=== PATIENT | male | born 1965 | race Caucasian/White ===

== ENCOUNTER 2018-07-19 21:52 | Outpatient (REF) | payer MEDICAID, SELFPAY ==
[2018-07-21 11:49] LABS: HSV 1 DNA Result Negative; HSV 2 DNA Result POSITIVE; Specimen Description SUPRAPUBIC
== END 2018-07-19 22:12 ==
LOC: LBN 21:52
PROVIDERS: PCP Emergency Medicine
DX: L98.9 Disorder of the skin and subcutaneous tissue, unspecified (principal); Z11.59 Encounter for screening for other viral diseases
CPT/HCPCS: 87529; 87070; 87205

== ENCOUNTER 2018-07-27 18:59 | Outpatient (REF) | payer MEDICAID, SELFPAY ==
[2018-07-29 22:31] LABS: C.trach, Misc, Amplified RNA Negative (Negative); N.gonorr, Misc, Amplified RNA Negative (Negative); SOURCE: ANAL
[2018-07-31 13:33] LABS: Chlamydia Result Negative; GC Result Negative; Specimen Description URETHRA
== END 2018-07-27 19:19 ==
LOC: NCHCN 18:59
PROVIDERS: PCP Emergency Medicine
DX: Z11.3 Encounter for screening for infections with a predominantly sexual mode of transmission (principal)
CPT/HCPCS: 87491; 87591

== ENCOUNTER 2018-08-08 11:48 | Outpatient (CLI) | payer MEDICAID, SELFPAY ==
[2018-08-08 13:04] LABS: HCT 41.8 % (40.0-50.0); HGB 13.9 g/dL (13.5-17.5); Mean Corp. HGB Concentration 33.3 g/dL (32.0-36.0); Mean Corpuscular Hemoglobin 20.2 pg (27.0-33.0); Mean Corpuscular Volume 60.8 fL (80-95); RBC 6.87 m/cumm (4.50-6.00); RBC Distribution Width 18.7 % (11.8-14.1); White Blood Cell Count 5.47 k/cumm (4.4-10.8)
[2018-08-08 14:00] LABS: Platelet Count 179 x1000/uL (130-400)
[2018-08-08 14:04] LABS: Iron 102 ug/dL (50-175); Total Iron Binding Capacity 261 ug/dL (250-450)
[2018-08-08 14:39] LABS: ALT 28 U/L (12-78); AST 22 U/L (15-37); Albumin 4.1 g/dL (3.4-5.0); Alkaline Phosphatase 36 U/L (46-116); Anion Gap 11.2 mmol/L (3-11); BUN 16 mg/dL (7-18); Bilirubin, Total 0.5 mg/dL (0.2-1.0); CO2 27.8 mmol/L (21.0-32.0); CREATININE 0.89 mg/dL (0.70-1.30); Calcium 9.3 mg/dL (8.5-10.1); Calculated LDL 185; Chloride 102 mmol/L (98-107); Cholesterol 258 mg/dL (50-200); Ferritin 347 ng/mL (8-388); Glucose 78 mg/dL (70-100); HDL Cholesterol 53 mg/dL (40-60); Potassium 3.8 mmol/L (3.5-5.1); Sodium 141 mmol/L (136-145); Total Protein 7.3 g/dL (6.4-8.2); Triglyceride 104 mg/dL (30-150)
[2018-08-09 10:17] LABS: Hepatitis B Surface Ag Negative (NEGAT)
[2018-08-09 11:30] LABS: HIV-1/2 Ag & Ab Screen Negative (NEGAT); Hepatitis C Ab w Rflx HCV PCR Negative (NEGAT)
[2018-08-09 11:33] LABS: Syphilis Serology (RPR) Negative (Negative)
[2018-08-10 21:00] LABS: Source URINE; T.vaginalis, Misc, RNA Negative (Negative)
== END 2018-08-08 12:08 ==
PROVIDERS: PCP Emergency Medicine
DX: D50.9 Iron deficiency anemia, unspecified (principal); Z00.00 Encounter for general adult medical examination without abnormal findings; I10 Essential (primary) hypertension; R21 Rash and other nonspecific skin eruption; Z72.51 High risk heterosexual behavior; E03.9 Hypothyroidism, unspecified; Z11.59 Encounter for screening for other viral diseases; Z11.4 Encounter for screening for human immunodeficiency virus [HIV]
CPT/HCPCS: 36415; 80053; 80061; 83721; 85027; 86803; 87340; 87389; 87661; 82728; 83540; 83550; 86592; 86704

== ENCOUNTER 2018-08-30 09:32 | Outpatient (CLI) | payer MEDICAID, SELFPAY ==
[2018-08-31 09:45] LABS: HIV-1/2 Ag & Ab Screen Negative (NEGAT)
[2018-08-31 12:19] LABS: FSH 5.8 mIU/ml (1.4-18.1); LH 3.2 mIU/ml (2-9)
[2018-09-01 14:38] LABS: Acrosom Defect 14.5 %; Appearance Normal; Container Type 50 mL Conical; Double Forms 0.5 %; Grade 2.5 (>=2.5); Motile/Ejaculate 13.8 x10(6) (>=9.0); Motile/mL 4.6 x10(6) (>=6.0); Motility 40 % (>=40); Sperm/mL 11.5 x10(6) (>=15.0); Study Type Semen
== END 2018-08-30 09:52 ==
DX: N46.9 Male infertility, unspecified (principal); R21 Rash and other nonspecific skin eruption; Z72.51 High risk heterosexual behavior; Z11.4 Encounter for screening for human immunodeficiency virus [HIV]
CPT/HCPCS: 87389; 83001; 83002; 89240; 89310

== ENCOUNTER 2018-09-01 16:20 | Outpatient (REF) | payer MEDICAID, SELFPAY ==
[2018-09-04 11:28] LABS: Campylobacter PCR SEE COMMENTS; Salmonella PCR SEE COMMENTS; Shiga Toxin PCR SEE COMMENTS; Shigella/Enteroinvasive Ecoli SEE COMMENTS
== END 2018-09-01 16:40 ==
LOC: LBN 16:20
PROVIDERS: Visit Provider Family Medicine
DX: R19.7 Diarrhea, unspecified (principal)
CPT/HCPCS: 87329; 87505; 87324

== ENCOUNTER 2018-09-14 01:39 | Outpatient (CLI) | payer MEDICAID, SELFPAY ==
[2018-09-14 10:00] LABS: Abs Immature Grans 0.01 k/cumm (0.0-0.09); Absolute Basophil Count 0.02 k/cumm (0.0-0.2); Absolute Eosinophil Count 0.07 k/cumm (0.0-0.7); Absolute Neutrophil Count 2.68 k/cumm (1.2-6.7); Basophils % 0.4; Eosinophils % 1.4; HGB 13.1 g/dL (13.5-17.5); Immature Grans % 0.2; Lymphocytes % 34.1; Mean Corp. HGB Concentration 33.6 g/dL (32.0-36.0); Mean Corpuscular Hemoglobin 20.4 pg (27.0-33.0); Mean Corpuscular Volume 60.7 fL (80-95); Neutrophils % 53.9; Platelet Count 187 x1000/uL (130-400); RBC 6.42 m/cumm (4.50-6.00); RBC Distribution Width 18.6 % (11.8-14.1); White Blood Cell Count 4.98 k/cumm (4.4-10.8)
[2018-09-14 10:34] LABS: Diff Comment RBC Morph Reviewed
[2018-09-14 10:35] LABS: Hypochromasia 2+; Microcytosis 3+
[2018-09-14 10:36] LABS: Poikilocytes 2+
== END 2018-09-14 01:59 ==
PROVIDERS: Visit Provider Family Medicine
DX: R19.7 Diarrhea, unspecified (principal); R53.83 Other fatigue
CPT/HCPCS: 36415; 85025

== ENCOUNTER 2018-10-03 07:01 | Day surgery (SDC) | payer MEDICAID, SELFPAY ==
[2018-10-03 07:19] VITALS: BP 128/84; PULSE 68; RESP 16; TEMP 36; O2SAT 100
[2018-10-03] MEDS: Lactated Ringers 1,000 ML 80 ML IV (07:37)
--- NOTE | 2018-10-03 08:25 | BOWEL_PTH ---
PATIENT: Johnny Lee LOC: [facility] U#:[id number] AGE/SX: 53/M ROOM: RE10/03/[address]: Renate Hamlin MD : 1965 BED: DIS: 10/03/2018 SPEC #: [id number] RECD: 10/03/18 13:00 STATUS: TAPAN REOmid #: [id number] NEGRO: 10/03/18 08:[address]: Renate Hamlin DEPT: Surgical Specimen RECD BY: Paty Barraza ENTERED: 10/03/18 13:03 SP TYPE: Bowel OTHR DR: Les Ghosh MD Tissues: 1 - BIOPSY BOWEL 2 - STOMACH BIOPSY 3 - BIOPSY BOWEL Procedures: GROSS AND MICRO LEVEL 4 Comments: [id number]
--- NOTE | 2018-10-03 08:56 | W.PM.DSUDISC ---
Discharge Plan Disposition Patient Disposition: HOME Condition: Good Discharge Details Attending Provider: Renate Hamlin Primary Care Provider: Les Ghosh Home Meds and New Rx's Prescriptions: Continued triamcinolone acetonide 0.1 % ointment 1 applic TP BID PRN (Reason: anal/buttocks dermatitis) RF: 0 indomethacin 50 mg capsule 50 mg PO TID PRN (Reason: gout) Qty: 30 RF: 0 Discharge Instructions Additional Instructions: Your EGD and colonoscopy looked normal. Routine biopsies were taken in the stomach and colon. My office will send a letter with results. You will need a screening colonoscopy in 10 years Activity:: Activity as Tolerated Diet:: As Tolerated Discharge Orders Discharge Orders: Discharge Order (Routine); Ordered 10/03/18 Ordered By: Renate Hamlin DS: Diagnosis Discharge Diagnosis (1) Change in bowel habits: Start date: 10/03/18 Start time: 08:56 Status: Acute (2) Nausea: Status: Acute
[2018-10-03 09:35] VITALS: BP 122/78; PULSE 57; RESP 16; TEMP 36; O2SAT 99
--- NOTE | 2018-10-04 09:29 | ENDO_ITS ---
REPORT OF OPERATIVE PROCEDURE DATE OF PROCEDURE October 03, 2018 PREOPERATIVE DIAGNOSES 1. Nausea. 2. Change in bowel habits. POSTOPERATIVE DIAGNOSES 1. Normal EGD. 2. Normal colon. PROCEDURES 1. EGD with duodenal biopsies and antral biopsies. 2. Colonoscopy with random biopsies. SURGEON Renate Hamlin M.D. ANESTHESIA Monitored Anesthesia Care. INDICATION This is a 53-year-old man who complains of nausea and vomiting. He also has several loose stools a da y, which is new over the past month or so. He will often have to hurry to the bathroom. Stool culture s have been normal. He has not had a previous colonoscopy. PROCEDURE DESCRIPTION He was placed in the left lateral decubitus position. Propofol was titrated to sedation. The scope wa s advanced into the esophagus under direct visualization and down into the stomach and the duodenum. Biopsies were taken from the second portion of the duodenum to evaluate for celiac disease. The stoma ch itself appeared normal, including a retroflexed view of the fundus and the lesser curvature. Biops ies were taken from the gastric antrum to evaluate for H. pylori. The GE junction exhibited no eviden ce of masses, inflammation, Samano's or strictures. The air was suctioned from the stomach and the s cope withdrawn with no other esophageal lesions found. Digital rectal examination revealed no abnormalities. The scope was advanced to the cecum without dif ficulty. His prep was excellent. I took random biopsies throughout the colon to evaluate for microsco pic colitis. There were no visible abnormalities within the ascending, transverse, descending sigmoid colon or rectum, including on retroflexed view. He tolerated the procedure well and was stable to Re covery. I will contact him with biopsy results and proceed with further testing if indicated. This could incl ude a CT scan of the abdomen and pelvis. He will need a followup screening coloscopy in 10 years or s ooner if symptoms indicate. CC: Les Ghosh M.D.
== END 2018-10-03 10:10 | disposition home or self-care (01) ==
PROVIDERS: PCP Family Medicine; Visit Provider Surgery
PROC: (CPT 45380; principal; 2018-10-03 08:30)
DX: R19.4 Change in bowel habit (principal); R11.0 Nausea; F10.11 Alcohol abuse, in remission; D64.9 Anemia, unspecified
CPT/HCPCS: 45380; 43239; 88305

== ENCOUNTER 2018-10-16 00:37 | Outpatient (CLI) | payer MEDICAID, SELFPAY ==
[2018-10-16] MEDS: Omnipaque 350 MG/ML 50 ML BTL PO (09:48)
[2018-10-16] MEDS: Breeza Beverage 473 ML BTL PO ×2 (09:48→09:49)
[2018-10-16 09:50] LABS: CREATININE 0.85 mg/dL (0.70-1.30)
--- NOTE | 2018-10-16 11:09 | DI.CT_ITS ---
SYMPTOM/DIAGNOSIS: NAUSEA, CHANGE IN BOWEL HABITS, ABDOMINAL PAIN R10.[address]: 10/16 CT examination of the abdomen and pelvis was performed with a bolus infusion of 100 cc Omnipaque 350 and ingestion of dilute barium. Images obtained through the lung bases are unremarkable. Cardiac size is within normal limits. Liver, spleen and pancreas appear normal. Gallbladder and bile ducts are CT normal. Adrenals and kidneys appear normal. No evidence of urinary tract calcification or obstruction. Abdominal aorta is of normal diameter and no major vascular abnormality is seen. No abdominal or pelvic adenopathy. No significant abdominal wall hernia seen. Appendix is normal. No evidence of diverticulitis or bowel obstruction. Note is made of apparent wall thickening of the urinary bladder which is a nonspecific finding but which could represent acute or chronic cystitis. Chronic bladder outlet obstruction not excluded. CONCLUSION: Wall thickening of the urinary bladder which is a nonspecific finding. Correlation requested regarding the possibility of cystitis or chronic bladder outlet obstruction.
[2018-10-16] MEDS: Omnipaque 350 MG/ML 100 ML BTL IJ (11:14)
[2018-10-16] MEDS: Normal Saline Flush 10 ML SYR IVP (11:15)
== END 2018-10-16 00:57 ==
PROVIDERS: PCP Family Medicine; Visit Provider Surgery
DX: R19.4 Change in bowel habit (principal); R10.9 Unspecified abdominal pain
CPT/HCPCS: 74177; 82565; J3490; Q9967

== ENCOUNTER 2018-10-20 11:24 | Outpatient (CLI) | payer MEDICAID, SELFPAY ==
[2018-10-20 12:02] LABS: Bilirubin Negative (Negative); Blood Negative (Negative); Clarity Clear (Clear); Glucose Negative (Negative); Ketones Negative (Negative); Leukocyte Esterase Negative (Negative); Nitrite Negative (Negative); Specific Gravity <= 1.005 (1.005-1.025); Urobilinogen 0.2 EU/dL (Up TO 0.2)
== END 2018-10-20 11:44 ==
PROVIDERS: PCP Family Medicine; Visit Provider Surgery
DX: R30.0 Dysuria (principal)
CPT/HCPCS: 81003

== ENCOUNTER 2020-06-09 08:16 | Day surgery (SDC) | payer MEDICAID, SELFPAY ==
[2020-06-09 08:20] VITALS: BP 115/73; PULSE 80; RESP 18; TEMP 36.7; O2SAT 97
[2020-06-09] MEDS: Tropicam./Phenyleph. (1/2.5%) 5 ML BTL OS ×3 (08:46→08:56)
[2020-06-09] MEDS: Povidone-Iodine Ophth 30 ML BTL (09:32)
[2020-06-09] MEDS: Tetracaine 0.5% 4 ML BTL OS (09:32)
[2020-06-09] MEDS: Lidocaine 1% Pres-Free 5 ML VIAL (09:39)
[2020-06-09] MEDS: Trypan Blue 0.06% 0.5 ML SYR (09:39)
[2020-06-09] MEDS: Balanced Salt Soln.-PLUS 500 ML BAG (09:40)
[2020-06-09] MEDS: Duovisc Viscoelastic System EACH 1 EACH (09:41)
[2020-06-09] MEDS: Lidocaine 2% Jelly 6 ML SYR (09:42)
--- NOTE | 2020-06-09 10:03 | W.PM.DSUDISC ---
Discharge Plan Disposition Patient Disposition: HOME Condition: Good Discharge Details Attending Provider: Fabio Laird Primary Care Provider: Kristina Pierre Home Meds and New Rx's Prescriptions: No Action triamcinolone acetonide 0.1 % ointment 1 applic TP BID PRN (Reason: anal/buttocks dermatitis) RF: 0 indomethacin 50 mg capsule 50 mg PO TID PRN (Reason: gout) Qty: 60 RF: 3 Discharge Instructions Stand Alone Forms: Post-op Topical Cataract, Camron Ganey (DSU) Discharge Orders Discharge Orders: Discharge Order (Routine); Ordered 06/09/20 Ordered By: Fabio Laird DS: Diagnosis Discharge Diagnosis (1) Posterior subcapsular age-related cataract of left eye: Status: Resolved (2) Nuclear age-related cataract, left eye: Status: Resolved (3) Cortical cataract of left eye: Status: Resolved
--- NOTE | 2020-06-09 10:04 | ROE_ITS ---
Date of service: 06/09/20 Time of Service: 10:04 Operative Note Operative Note DATE OF PROCEDURE: 06/09/20 PRE-OP DIAGNOSIS: Nuclear/cortical/posterior subcapsular cataract, left eye Poor red reflex, left eye secondary to cataract POST-OP DIAGNOSIS: same PROCEDURE: Cataract extraction using phacoemulsification with intraocular lens implant, left eye, using capsular staining with Vision Blue SURGEON: Fabio Laird ANESTHESIA TYPE: Local By Surgeon and MAC Refer to Anesthesia Record COMPLICATIONS: None Patient was transported to: same day Patient's condition: stable Implants: Candido and Candido / [employer] Tecnis [id number] Indications: Progressive decreased vision due to cataract, left eye, with poor red reflex Procedure Description: CATARACT SURGERY OPERATIVE REPORT PREOPERATIVE DIAGNOSIS: 1. Nuclear/cortical/posterior subcapsular cataract, left eye 2. Poor red reflex secondary to #1 POSTOPERATIVE DIAGNOSIS: Same OPERATION: 1. Cataract extraction using phacoemulsification with posterior chamber intraocular lens implant, left eye. 2. Capsular staining with Vision Blue IOL: IOL Physician Relations Specialist/Model: Candido & Candido / JENNIFER Tecnis [id number] IOL Power: + 19.5 diopters IOL Serial Number: [id number] Optic Diameter: 6.0 mm Haptic/Overall Diameter: 13.0 mm PHACO INFO: Georgi Centurion Vision System with OZil and Active [employer]uidics Cumulative Dispersed Energy (CDE): 4.09 seconds SURGEON: Fabio Laird MD, EARLENE ANESTHESIA: Monitored A [facility] (MAC), with local sub-tenon's anesthetic infiltration COMPLICATIONS: None SPECIMENS: None INDICATIONS FOR PROCEDURE: The patient is a 54-year-old gentleman with history of nuclear/cortical/posterior subcapsular cataract of the left eye. He is significantly symptomatic that he desires cataract surgery and attempt to improve and maximize his vision. He has previously undergone cataract surgery in his right eye in 2015. He now presents for cataract surgery of the left eye. PROCEDURE: The correct surgical eye was identified and marked as the left eye and the pupil was dilated in the preoperative area using mydriatics and cycloplegics. The dilated pupil size was 7.5 mm. He elected to proceed without sedation. The patient was brought to the operating room where cardiopulmonary monitoring was instituted and surgical time-out was performed, confirming the correct operative eye and IOL power. Topical anesthesia was administered and ophthalmic povidone-iodine 5% was instilled into the conjunctival fornices. Lidocaine gel was applied to the cornea and the dayron-ocular area was prepped with Betadine 10% solution and draped in the usual sterile fashion for intraocular surgery, including an aperture drape. A Tegaderm transparent film dressing was cut in half and used to cover the lashes and lid margins. Care was taken to sequester the lashes and lid margins under the Tegaderm dressing. A lid speculum was placed between the lids of the operative eye and the Bo-Geneva operating microscope was maneuvered into position. Tracy scissors were then used to make a conjunctival buttonhole approximately 6mm posterior to the limbus in the inferonasal quadrant. Blunt dissection was carried out to expose bare sclera, and a blunt-tipped sub-tenon?s anesthesia cannula was introduced and passed posteriorly along the globe where non- preserved plain lidocaine was injected into posterior sub-Tenon?s space. A sideport knife was used to make a paracentesis port superiorly/superiortemporally. Intraocular phenylephrine/lidocaine was injected int the anterior chamber.. Air was then injected into the anterior chamber, followed by Vision Blue, which was painted over the anterior capsule and then irrigated out using BSS. The anterior chamber was filled with viscoelastic. A 2.4mm keratome knife was used to create a half-thickness groove at the limbus and then to construct a three-plane near-clear corneal tunnel extending 2.0mm into clear cornea at the 3:00 position. A flap was raised on the anterior capsule and capsulorhexis forceps were used to complete a continuous curvilinear capsulorhexis of 5.5 mm. Balanced salt solution was then used to perform cortical cleaving hydrodissection and nuclear hydrodelineation until the lens could be freely rotated within the capsular bag. The lens nucleus was then disassembled and removed within the capsular bag and iris plane using phacoemulsification. Residual cortical material was removed using the 45-degree angled silicone I/A tip with 0.3mm port. The posterior capsule was carefully polished to remove as much residual lens epithelial cells as safely possible. The capsular bag was then inflated and the anterior chamber deepened with viscoelastic. The lens implant described above was inserted into the capsular bag using the JENNIFER [place] Injector. A Kuglen hook was used to dial the IOL into position. Residual viscoelastic was then removed first from posterior to the IOL, then from the anterior chamber using the I/A handpiece. The lens implant was noted to center nicely within the capsular bag. The incisions were stromally hydrated, and the anterior chamber was reformed using BSS. Then 0.5cc of moxifloxacin 1.0mg/ml were injected into the capsular bag and anterior chamber. The incisions were checked with a Weck spear and found to be secure. Several drops of ophthalmic povidone-iodine 5% were then applied to the eye followed by two drops of Imprimis combination prednisolone/moxifloxacin/nepafenac solution. The drapes were removed and a clear plastic protective eye shield was placed over the eye. The patient was then returned to [facility] in stable condition.
== END 2020-06-09 10:22 | disposition home or self-care (01) ==
PROVIDERS: Visit Provider Ophthalmology
PROC: (CPT 66982; principal; 2020-06-09 10:30)
DX: H25.12 Age-related nuclear cataract, left eye (principal); H25.042 Posterior subcapsular polar age-related cataract, left eye; H25.012 Cortical age-related cataract, left eye; H57.09 Other anomalies of pupillary function; Z96.1 Presence of intraocular lens; Z98.41 Cataract extraction status, right eye
CPT/HCPCS: 66982; V2632

== ENCOUNTER 2021-11-04 02:49 | Outpatient (CLI) | payer MEDICAID, SELFPAY ==
[2021-11-04 12:58] LABS: ALT 25 U/L (16-63); AST 22 U/L (15-37); Albumin 3.8 g/dL (3.4-5.0); Alkaline Phosphatase 26 U/L (46-116); Anion Gap 10.6 mmol/L (3-11); BUN 16 mg/dL (7-18); Bilirubin, Total 0.7 mg/dL (0.2-1.0); CO2 26.4 mmol/L (21.0-32.0); Calculated LDL 156 mg/dL (<100); Chloride 106 mmol/L (98-107); Cholesterol 223 mg/dL (<200); Estimated GFR 87.78 (mL/min/1.73m2); Glucose 94 mg/dL (74-106); HDL Cholesterol 56 mg/dL (40-60); Potassium 4.3 mmol/L (3.5-5.1); Sodium 143 mmol/L (136-145); Total Protein 7.2 g/dL (6.4-8.2); Triglyceride 59 mg/dL (<150)
[2021-11-04 13:16] LABS: Calcium 8.8 mg/dL (8.5-10.1)
== END 2021-11-04 02:50 | disposition home or self-care (01) ==
LOC: LOS 02:49
DX: Z00.00 Encounter for general adult medical examination without abnormal findings (principal); Z13.220 Encounter for screening for lipoid disorders
CPT/HCPCS: 36415; 80053; 80061

== ENCOUNTER 2022-05-14 01:37 | Outpatient (CLI) | payer MEDICAID, SELFPAY ==
[2022-05-14 12:39] LABS: Calculated LDL 118 mg/dL (<100); Cholesterol 193 mg/dL (<200); HDL Cholesterol 59 mg/dL (40-60); Triglyceride 82 mg/dL (<150)
== END 2022-05-14 01:38 | disposition home or self-care (01) ==
LOC: LOS 01:38
PROVIDERS: PCP Nurse Practitioner Family; Visit Provider Nurse Practitioner Family
DX: E78.00 Pure hypercholesterolemia, unspecified (principal)
CPT/HCPCS: 36415; 80061

== ENCOUNTER 2023-07-23 18:42 | Inpatient (IN) | payer MEDICAID, SELFPAY ==
--- NOTE | 2023-07-23 18:45 | DI.RAD_ITS ---
Exam(s) XR HIP LT COMPLETE AP PELVIS EXAM: XR HIP LT COMPLETE AP PELVIS CLINICAL HISTORY: hip pain. TECHNIQUE: 2D digital imaging was performed. COMPARISON: No exams were available for comparison FINDINGS: 3 views There is nondisplaced fracture of the mid level of the left femoral neck. No other fractures identif ied. Left hip joint space appears unremarkable. No other pelvic fractures identified. No osseous l esions. IMPRESSION: Nondisplaced left femoral neck fracture. No dislocation of the hip joint. DATA REPOSITORY: RADIATION DOSE DELIVERED:
[2023-07-23 18:48] VITALS: BP 132/87; PULSE 77; RESP 15; TEMP 37.1; O2SAT 99
[2023-07-23] MEDS: oxyCODONE 5 MG TAB PO (19:15)
--- NOTE | 2023-07-23 20:31 | DI.VRAD_ITS ---
PROCEDURE INFORMATION: Exam: XR Left Hip Exam date and time: 07/23/2023 7:25 PM Age: 57 years old Clinical indication: Injury or trauma; Fall; Blunt trauma (contusions or hematomas); Left; Injury date: 07/23/23; Patient HX: Hip pain TECHNIQUE: Imaging protocol: Radiologic exam of the left hip. Views: 2 or 3 views hip with pelvis when performed. COMPARISON: CT ABDOMEN PELVIS W 10/16/2018 11:05 AM FINDINGS: Bones/joints: Left femoral neck fracture. No significant displacement. No dislocation of femoral head. No pelvic fracture is evident. Sacrum, sacroiliac joints, pubic symphysis are unremarkable. Right hip is unremarkable. Lower lumbar spine is unremarkable as visualized. Soft tissues: Unremarkable. IMPRESSION: Left femoral neck fracture. No significant displacement. No dislocation of hip joint. Dictated and Authenticated by: Quincy Allen MD. Ordering:AIDEN Crespo MD
[2023-07-23] MEDS: Ondansetron 4 MG/2 ML VIAL IVP (20:45)
--- NOTE | 2023-07-23 20:45 | RT.EKG_ITS ---
APPROVED REPORT Exam: Resting ECG Reason for Exam: preop Patient Location: E HR:81 bpm ECG Measurements Heart Rate 81 AXIS RI 153 P 3 QRSd 111 QRS 86 QT 396 T 37 QTc 460 Conclusion Sinus rhythm 81 normal axis
--- NOTE | 2023-07-23 20:45 | DI.RAD_ITS ---
Exam(s) XR PORTABLE CHEST AP EXAM: XR PORTABLE CHEST AP CLINICAL HISTORY: pre op. TECHNIQUE: 2D digital imaging was performed. COMPARISON: No exams were available for comparison FINDINGS: Single AP portable view. Heart size is upper normal. The mediastinum is not widened. Multiple healed rib fractures noted bilaterally as well as a healed midshaft fracture of the left cla vicle. No infiltrates nor pleural effusions. No pneumothorax. No pulmonary edema. IMPRESSION: No acute pulmonary findings on this single AP portable view of the chest. Multiple bilateral healed rib fractures and healed left clavicle fracture. DATA REPOSITORY: RADIATION DOSE DELIVERED:
[2023-07-23 20:48] LABS: Abs Immature Grans 0.05 10^3/uL (0.0-0.06); Absolute Eosinophil Count 0.02 10^3/uL (0.0-0.7); Absolute Lymphocyte Count 0.76 10^3/uL (1.2-3.4); Absolute Neutrophil Count 10.43 10^3/uL (1.2-6.7); Basophils % 0.3 %; Eosinophils % 0.2 %; HGB 12.9 g/dL (13.5-17.5); Immature Grans % 0.4 %; Lymphocytes % 6.3 %; MCH 20.8 pg (27.0-33.0); MCHC 32.3 % (32.0-36.0); MCV 64 fL (80-95); Monocytes % 5.8 %; RBC 6.21 10^6/uL (4.36-5.78); RDW 17.1 % (11.8-14.1); RDW-SD 35.2 fL; WBC 11.99 10^3/uL (4.4-10.8)
--- NOTE | 2023-07-23 20:52 | W.ORTHOCONSU ---
Date of service: 07/24/23 Time of Service: 07:30 Assessment and Plan Assessment and plan (1) Left displaced femoral neck fracture: Assessment and plan: 57 year old male with mildly displaced Left femoral neck fracture Medical admission & optimization for surgery tomorrow morning: Left hip closed reduction internal fixation NPO post midnight, hold chemical dvt ppx, B/L SCDs, pain control D/W hospitalist & ER doctors AM update? Mechanical fall, isolated injury left hip. No other complaints or concerns. Stable medical problems. Healthy and active enjoys biking and skiing. No pre-existing hip problems, arthritis, pain, or injuries. Review of systems negative. General exam shows no injuries and painless range of motion about neck bilateral shoulders right lower extremity. Left lower extremity only gently tested without any notable edema, ecchymosis, and neurovascular intact throughout with readily palpable dorsalis pedis pulse. Labs and imaging reviewed. Discussed thoroughly, mildly displaced, valgus impacted left femoral neck fracture. Overall, physiologically young active patient without any pre-existing hip dysfunction. Recommend internal fixation over LORELEI at this time. Reviewed risks and benefits unique to this surgery including potential failure requiring additional hip surgery like LORELEI. Decision to proceed with surgery today: Left hip closed reduction internal fixation The risks, benefits, and alternatives were thoroughly discussed. Patient was counseled regarding pain management, expected postoperative course, and recovery timeline. All questions were answered. Informed consent was obtained. Agree and understand treatment plan. Breathing comfortably on room air. No coughs or wheezes. 2+ left dorsalis pedis pulse regular rate and rhythm. 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 Gout Surgical History Extraction of cataract 01/2015; [facility]; RIGHT EYE Family History Mother , 87 Cancer Social History Smoking/Tobacco Use Status: Former Tobacco Use tobacco type: cigarettes Quit Date: 03/07/12 Tobacco: How many years used: 20 Second Hand Exposure: Yes Smoking risk assessment performed?: Yes Alcohol Intake: former Drug use: Never Substance use type: does not use Housing: house Do you need help understanding health information?: Never 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 Pets and animals: Yes Pets and animals: dog(s) Sexually active: No Do you think of yourself as: straight/heterosexual Current gender identity: male What is your relationship status?: How often do you talk on the phone with friends or family?: once per week How often do you get together with friends or relatives?: once per week How often do you attend samaritan or yazidi services?: decline to answer Do you belong to any clubs or organized social groups?: no Panel score (0-1 are the most socially isolated patients): 0 What type of physical activity do you participate in: walking Frequency: daily Nikki/Shinto: No preference Special nikki needs: No Seatbelt use: always Helmet use: Yes Helmet use: always Drive intox 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
[2023-07-23 21:03] LABS: PTT Activated 21.8 sec (23.6-32.8); Prothrombin Time 10.5 sec (9.1-11.1)
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
[2023-07-23 21:04] LABS: ALT 22 U/L (16-63); AST 17 U/L (15-37); Albumin 4.2 g/dL (3.4-5.0); Alkaline Phosphatase 35 U/L (46-116); Anion Gap 10.4 mmol/L (3-11); BUN 17 mg/dL (7-18); Bilirubin, Total 0.8 mg/dL (0.2-1.0); CO2 26.6 mmol/L (21.0-32.0); CREATININE 0.8 mg/dL (0.70-1.30); Calcium 8.8 mg/dL (8.5-10.1); Chloride 103 mmol/L (98-107); Estimated GFR 102.58 (mL/min/1.73m2); Glucose 97 mg/dL (74-106); Potassium 3.7 mmol/L (3.5-5.1); Sodium 140 mmol/L (136-145); Total Protein 7.5 g/dL (6.4-8.2)
[2023-07-23 21:12] LABS: Absolute Basophil Count 0.04 10^3/uL (0.0-0.2); Platelet Count 159 10^3/uL (130-400)
[2023-07-23 21:13] LABS: Diff Comment RBC Morph Reviewed; Microcytosis 1+
--- NOTE | 2023-07-23 21:18 | DI.VRAD_ITS ---
PROCEDURE INFORMATION: Exam: XR Chest Exam date and time: 07/23/2023 9:03 PM Age: 57 years old Clinical indication: Other: Pre op TECHNIQUE: Imaging protocol: Radiologic exam of the chest. Views: 1 view. COMPARISON: CT ABDOMEN PELVIS W 10/16/2018 11:05 AM FINDINGS: Lungs: Clear lungs bilaterally. No consolidation. No features of edema. Suggestion of a right mid to lower lung field 7 x 6 mm nodule. This overlies the posterior aspect of the 7th rib. This might represent a nipple shadow. Pleural spaces: No pleural effusion. Heart/Mediastinum: Normal heart size. Bones/joints: Multiple bilateral rib fractures which are old and healed. IMPRESSION: 1. No acute lung infiltrates or edema. 2. No acute pleural change per 3. Normal heart size. 4. Multiple old bilateral rib fractures. 5. Degenerative thoracic spine. 6. Possible left mid to lower lung field 7 mm nodule versus nipple shadow. Dictated and Authenticated by: Quincy Allen MD. Ordering:JoaquinCOLT Crsepo MD
[2023-07-23 21:59] LABS: Bilirubin Negative (Negative); Blood Negative (Negative); Clarity Clear (Clear); Glucose Negative (Negative); Ketones 40 mg/dL (Negative); Leukocyte Esterase Negative (Negative); Nitrite Negative (Negative); Specific Gravity >= 1.030 (1.005-1.025); Urobilinogen 0.2 mg/dL (Up to 0.2); pH 5.5 (5-8)
[2023-07-23] MEDS: Normal Saline 1,000 ML 125 ML IV (22:41)
[2023-07-23 22:43] VITALS: BP 137/83; PULSE 94; RESP 16; TEMP 36.5; O2SAT 98
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
[2023-07-23] MEDS: MORPHine 4 MG/ML SYR IVP (23:37)
[2023-07-23 23:38] LABS: Iron 63 ug/dL (65-175)
[2023-07-23] MEDS: Normal Saline Flush 10 ML SYR IVP (23:38)
[2023-07-23 23:52] LABS: Ferritin 321 ng/mL (26-388)
[2023-07-24] VITALS (10 sets, daily range): BP systolic 105–123; BP diastolic 67–81; PULSE 73–88; RESP 14–16; TEMP 36.1–36.7; O2SAT 92–98; BMI 25.8
[2023-07-24 00:05] LABS: Folate 14.4 ng/mL (8.6-20.0); Vitamin B12 406 pg/mL (193-986)
[2023-07-24] MEDS: MORPHine 4 MG/ML SYR IVP (03:30)
--- NOTE | 2023-07-24 06:45 | DI.RAD_ITS ---
Exam(s) XR HIP LT IN OR EXAM: XR HIP LT IN OR CLINICAL HISTORY: Left displaced femoral neck fracture. TECHNIQUE: 2D digital imaging was performed. COMPARISON: No exams were available for comparison FINDINGS: Fluoroscopy provided during orthopedic procedure left hip. See procedure report for details. Total fluoroscopy time 55 seconds IMPRESSION: Radiation exposure index/cumulative dose: elliot Donnelly=9.5141 mGy DATA REPOSITORY: RADIATION DOSE DELIVERED:
[2023-07-24] MEDS: Normal Saline 1,000 ML 125 ML IV (06:49)
[2023-07-24 07:10] LABS: HCT 35.8 % (40.0-50.0); HGB 11.3 g/dL (13.5-17.5); MCH 20.3 pg (27.0-33.0); MCHC 31.6 % (32.0-36.0); MCV 64 fL (80-95); Platelet Count 180 10^3/uL (130-400); RBC 5.58 10^6/uL (4.36-5.78); RDW 16.3 % (11.8-14.1); RDW-SD 35.6 fL; WBC 6.99 10^3/uL (4.4-10.8)
--- NOTE | 2023-07-24 07:21 | W.PM.OP ---
Date of service: 07/24/23 Time of Service: 08:00 Operative Note Operative Note DATE OF PROCEDURE: 07/24/23 PRE-OP DIAGNOSIS: Left mildly displaced femoral neck fracture POST-OP DIAGNOSIS: same PROCEDURE: Left hip internal fixation, CPT #90156 SURGEON: Tai Piedra BUILDING SERVICE WORKER: None None ANESTHESIA TYPE: Local By Surgeon and General LMA/ETT Refer to Anesthesia Record ESTIMATED BLOOD LOSS: 5 COMPLICATIONS: None Patient was transported to: PACU Patient's condition: stable Indications: Please see complete medical record for details. Findings: Synthes 7.3 mm cannulated screws x3 with 32 mm threads Procedure Description: In the operating room, general anesthesia was induced. The patient was positioned gently supine on the operating room [place] table. All bony prominences were well-padded. Preoperative antibiotics and TXA were administered. The left hip was prepped and draped in the usual sterile fashion. The correct patient, procedure, and side of the procedure were all verified prior to incision. Gentle hip flexion followed by extension internal rotation was used to reduce the fracture with x-ray assistance. A small lateral surgical area was preinjected with 0.25% bupivacaine containing epinephrine 30 cc. A small longitudinal incision was made, iliotibial band split, and lateral proximal femoral cortex palpated with the tip of the first 2.8 mm threaded guidewire. It was positioned centrally in the anterior to posterior plane and directed low inferior along the femoral neck into the femoral head. Appropriate angle was confirmed on lateral imaging in the other plane. An additional 2 superior anterior and posterior guidewires were placed similarly taking care to maintain good spread and positioning in the femoral head neck. Guidewires were adjusted into subchondral bone, measurements taken, and 5 mm subtracted for screw lengths. The 5.0 mm cannulated drill was used over the wires up to the level of the fracture. There was good bone quality. 32 mm threaded lengths were chosen given the level of the fracture and to engage more bone proximately to prevent displacement or subsidence of this now minimally displaced fracture. The screws were provisionally sent down majority of the way under power starting sequentially inferiorly, then posterior, and lastly anterior. The anterior screw was going to be long so it was removed, guidewire replaced, and shorter screw length chosen with the screw then placed the majority the way under power as well. Hand screwdriver was then used to provisionally tightened each screw bringing the heads down to bone, each guidewire was backed up so the screw tips were most visible, and multiple AP and lateral x-rays under various hip rotation images were taken to confirm no prominence at all in the joint and appropriate hardware placement. Each screw was final tightened taking care not to over-compress and shorten this fracture given the good proximal bone quality and again relatively nondisplaced alignment achieved with the goal to heal in this anatomic position. The small lateral wound was copiously irrigated normal saline. Subcutaneous tissue closed with 2-0 Monocryl buried erupted. Skin glue applied over the incision followed by Mepilex Band-Aid. The patient awoke from anesthesia without complication and was transferred to the recovery room in a stable condition.
--- NOTE | 2023-07-24 07:27 | ANES.PREOP_ITS ---
General Info Date of Service Date Performed: 07/24/23 Height: 5 ft 9 in Weight: 79.379 kg Body Mass Index (BMI): 25.8 Surgical Procedure: Operation Date: 07/24/23 08:00 Proposed Procedure Side Surgeon p Hip Cannulated Fx Tai Piedra MD Meds Allergies and Home Medications Allergies Allergy/AdvReac Type Severity Reaction Status Date / Time No Known Drug Allergies Allergy Verified 05/17/22 11:03 Home Medication Medication Instructions Recorded indomethacin 50 mg capsule 50 mg PO TID PRN gout #60 tab-caps 05/22/20 atorvastatin 10 mg tablet See Rx Instructions .Route 03/19/22 .COMPLEX #90 tabs Current Visit Medications: Current Medications Generic Name Dose Route Start Last Admin Trade Name Freq PRN Reason Stop Dose Admin Acetaminophen 0 mg 07/23/23 21:11 Acetaminophen 325 Mg Tab PO Q4H PRN PRN Al Hydrox/Mg Hydrox/Simethicone 15 ml 07/23/23 21:11 Mylanta Double Strength Suspension 30 Ml Cup PO Q2H PRN PRN Atorvastatin Calcium 10 mg 07/23/23 22:00 07/23/23 22:40 Atorvastatin 10 Mg Tab PO Not Given HS NICOLLE Docusate Sodium 100 mg 07/23/23 21:11 Docusate Sodium 100 Mg Cap PO TID PRN PRN Sodium Chloride 1,000 mls @ 125 mls/hr 07/23/23 21:15 07/24/23 06:49 Saline 1000ml Bag IV 125 mls/hr INFUSION NICOLLE Administration IV Miscellaneous Supplies 1 each 07/23/23 21:15 Iv Access IV DIRECTED NICOLLE Magnesium Hydroxide 30 ml 07/23/23 21:11 Milk Of Magnesia 30 Ml Cup PO DAILY PRN PRN Morphine Sulfate 4 mg 07/23/23 21:19 07/24/23 03:30 Morphine 4 Mg/Ml Syr IVP 4 mg Q2H PRN PRN Administration Polyethylene Glycol 17 gm 07/23/23 21:11 Polyethylene Glycol 3350 17 Gm Packet PO DAILY PRN PRN Constipation Sodium Chloride 0 ml 07/23/23 21:11 07/23/23 23:38 Normal Saline Flush 10 Ml Syr IVP 20 ml PRN PRN Administration Sodium Chloride 0 ml 07/24/23 08:30 Normal Saline Flush 10 Ml Syr IVP BID NICOLLE Sodium Chloride 0 ml 07/23/23 21:11 Normal Saline 10 Ml Vial IJ DIRECTED PRN PFSH Active Problems Active Problems: Problem Status Onset Code Fracture of femoral neck, left, closed S72.002A Situational stress F43.9 High cholesterol E78.00 Encounter for annual physical exam Z00.00 Posterior subcapsular age-related cataract of left eye H25.042 Nuclear age-related cataract, left eye H25.12 Cortical cataract of left eye H26.9 Epididymal cyst N50.3 Change in bowel habits R19.4 Lesion of nose J34.89 Skin rash R21 Alcohol abuse F10.10 History of left cataract extraction Z98.42 Anemia 05/02/13 D64.9 Gout 10/16/09 M10.9 History of tobacco use Z87.891 Medical History Medical History Screening cholesterol level Testicular pain Nausea Routine screening for STI (sexually transmitted infection) 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 Gout Surgical History Surgical History Extraction of cataract 01/2015; [facility]; [facility] Tobacco Smoking/Tobacco Use Status: Former Tobacco Use Passive smoking exposure: Yes Second hand exposure: Yes Alcohol Alcohol Intake: former Substance Use Substance use: Never Substance use type: does not use Vital Signs and Lab Results Vital Signs Most Recent Vital Signs in EMR: Most Recent Vital Signs Temp Pulse Resp BP Pulse Ox 36.5 C 78 16 115/70 98 07/24/23 07:08 07/24/23 07:08 07/24/23 07:08 07/24/23 07:08 07/24/23 07:08 Lab Results 07/23/23 20:43 07/23/23 20:43 Blood Type / Crossmatch: 2 No Data to Display Complete Blood Count: 2 White Blood Count 11.99 10^3/uL (4.4-10.8) H 07/23/23 20:43 Red Blood Count 6.21 10^6/uL (4.36-5.78) H 07/23/23 20:43 Hemoglobin 12.9 g/dL (13.5-17.5) L 07/23/23 20:43 Hematocrit 40.0 % (40.0-50.0) 07/23/23 20:43 Platelet Count 159 10^3/uL (130-400) 07/23/23 20:43 Complete Metabolic Panel: 2 Sodium 140 mmol/L (136-145) 07/23/23 20:43 Potassium 3.7 mmol/L (3.5-5.1) 07/23/23 20:43 Chloride 103 mmol/L (98-107) 07/23/23 20:43 Carbon Dioxide 26.6 mmol/L (21.0-32.0) 07/23/23 20:43 BUN 17 mg/dL (7-18) 07/23/23 20:43 Creatinine 0.8 mg/dL (0.70-1.30) 07/23/23 20:43 Est GFR (CKD-EPI 2020) 102.58 (mL/min/1.73m2) 07/23/23 20:43 Magnesium Pending 07/24/23 06:46 Calcium 8.8 mg/dL (8.5-10.1) 07/23/23 20:43 Albumin 4.2 g/dL (3.4-5.0) 07/23/23 20:43 Glucose 97 mg/dL (74-106) 07/23/23 20:43 Liver Function Panel: 2 Alanine Aminotransferase (ALT/SGPT) 22 U/L (16-63) 07/23/23 20: 43 Aspartate Amino Transf (AST/SGOT) 17 U/L (15-37) 07/23/23 20:43 Coagulation Panel: 2 INR International Normalized Ratio 1.0 (0.9-1.1) 07/23/23 20:4 3 Prothrombin Time 10.5 sec (9.1-11.1) 07/23/23 20:43 Activated Partial Thromboplast Time 21.8 sec (23.6-32.8) L 07/23/23 20:43 Cardiac Panel: 2 No Data to Display Arterial Blood Gas: 2 No Data to Display Venous Blood Gas: 2 No Data to Display Pancreas Panel: 2 No Data to Display Thyroid Panel: 2 No Data to Display Infectious Disease: 2 No Data to Display Blood Cultures: 2 No Data to Display Toxicology Panel: 2 No Data to Display Anesthesia Assessment and Plan Anesthesia History Personal History: No History of Anesthesia Complications Family History: No Family History of Anesthesia Complications Exercise Tolerance Exercise Tolerance: Metabolic Equivalents>4 Pertinent Negatives Pertinent Negatives: No Symptoms of GERD Cardiac & Pulmonary Exam Cardiac Exam: Normal S1/S2 Heart Sounds Pulmonary Exam: Clear Bilateral Breath Sounds Implantable Cardiac Device Does patient have a Pacemaker or an ICD?: No Airway Exam Known Difficult Airway: No Mallampati Class: 1 Mouth Opening: Normal (> 3cm) Thyromental Distance: Greater than 3 cm Neck Range of Motion: Full ROM Neck Circumference: Normal Teeth Condition: Normal Dentition ASA Classification ASA Score: ASA 2 Emergency Case?: No NPO Status NPO Status: NPO Clears >2 hours, Solids >8 hours Anesthesia Plan Resuscitation Status: Full Code Anesthesia Technique: General Anesthesia Airway Planned: Endotracheal Tube Monitors Used: Standard Monitors
[2023-07-24 07:34] LABS: ALT 16 U/L (16-63); AST 13 U/L (15-37); Albumin 3.2 g/dL (3.4-5.0); Alkaline Phosphatase 27 U/L (46-116); Anion Gap 6.5 mmol/L (3-11); BUN 14 mg/dL (7-18); Bilirubin, Total 0.9 mg/dL (0.2-1.0); CO2 28.5 mmol/L (21.0-32.0); CREATININE 0.8 mg/dL (0.70-1.30); Calcium 7.9 mg/dL (8.5-10.1); Chloride 106 mmol/L (98-107); Estimated GFR 102.58 (mL/min/1.73m2); Glucose 99 mg/dL (74-106); Magnesium 1.9 mg/dL (1.8-2.4); Potassium 3.8 mmol/L (3.5-5.1); Sodium 141 mmol/L (136-145)
[2023-07-24] MEDS: Lactated Ringers 1,000 ML 100 ML IV (08:05)
[2023-07-24] MEDS: ceFAZolin 2 GM/50 ML BAG 100 GM (08:21)
[2023-07-24] MEDS: Tranexamic Acid 1,000 MG/10 ML VIAL 1000 MG (08:29)
[2023-07-24] MEDS: Normal Saline 100 ML 600 ML (08:29)
[2023-07-24] MEDS: Bupivacaine 0.25% Pres-Free W/EPI 30 ML VIAL (08:50)
--- NOTE | 2023-07-24 09:26 | PDOC.CMIN ---
Date of service: 07/24/23 Time of Service: 09:26 Care Management Initial Assmt Initial Assessment REASON FOR HOSPITALIZATION:: fractured hip PREVIOUS FUNCTIONAL STATUS/SOCIAL/FAMILY SUPPORTS:: Johnny lives in [place], [place] with his 28 year old son Iam. He also has a step son who lives in [place]. 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 He is independent at baseline and does not receive any community services. CURRENT FUNCTIONAL STATUS:: Johnny was sitting up in bed when CM met with him. he was pleasant in interaction and engaged easily with CM. Johnny had surgery this morning to repair his fractured hip. He is feeling well and was out of bed with PT. Johnny shared that he hopes to be discharged later today. He was provided with a blank copy of the [place] Advanced Directives and contact information for CM should he wish to have assistance with their completion post-discharge. ADVANCE DIRECTIVES:: none on file Has patient been provided with info about the portal/API?: Yes Did the patient sign up for the portal?: No CODE STATUS:: Full Code INSURANCE COVERAGE / FINANCIAL ISSUES:: Medicaid CURRENT HOME/COMMUNITY SERVICES/EQUIPMENT:: will be provided with a walker PRIMARY CARE PHYSICIAN:: Melchor Mitchell POTENTIAL DISCHARGE NEEDS:: follow up with Orthopedic surgeon PATIENT/FAMILY EDUCATION NEEDS:: review of discharge instructions, activity, limitations, follow up plan, discuss Ask Me Three TRANSPORTATION:: via private vehicle with family PLAN:: Anticipate Johnny will be discharged home with no new services when medically and surgically stable. He will follow up with his community providers and plan of care and transport with family. CM will follow and continue to support discharge planning needs. 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 Gout Surgical History Extraction of cataract 01/2015; [facility]; RIGHT E[facility] Family History Mother , 87 Cancer Social History Smoking/Tobacco Use Status: Former Tobacco Use tobacco type: cigarettes Quit Date: 03/07/12 Tobacco: How many years used: 20 Second Hand Exposure: Yes Smoking risk assessment performed?: Yes Alcohol Intake: former Drug use: Never Substance use type: does not use Housing: house Do you need help understanding health information?: Never 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 Pets and animals: Yes Pets and animals: dog(s) Sexually active: No Do you think of yourself as: straight/heterosexual Current gender identity: male What is your relationship status?: How often do you talk on the phone with friends or family?: once per week How often do you get together with friends or relatives?: once per week How often do you attend voodoo or cheondoism services?: decline to answer Do you belong to any clubs or organized social groups?: no Panel score (0-1 are the most socially isolated patients): 0 What type of physical activity do you participate in: walking Frequency: daily Nikki/Orthodox: No preference Special nikki needs: No Seatbelt use: always Helmet use: Yes Helmet use: always Drive intox or ride w/intox dedicated local truck driver: No Do you feel safe at home: Yes Do you feel safe in your relationship?: Yes SDOH(Care Management) Screening Will the Patient Participate in the Screening?: Yes Do you worry about having a steady place to live?: no In the past 12 months, have you had to go without electric, gas, oil or water in your home?: no Have you or anyone in your house had to go without enough food to eat?: no Has lack of transportation kept you from medical appointments or from doing things needed for daily living?: no Has anyone in your support network made you feel unsafe for any reason?: no
--- NOTE | 2023-07-24 09:38 | DSE_ITS ---
Date of service: 07/26/23 Time of Service: 08:00 DS: Diagnosis Discharge Diagnosis (1) Left displaced femoral neck fracture: Discharge Plan Disposition Patient Disposition: Home Condition: Good Discharge Details Reason For Visit: Left Femoral Neck Fracture,Microcytic Anemia,Hyper Admit Date/Time: 07/23/23 21:11 Admit Provider: Steven Arrieta Attending Provider: Steven Arrieta Primary Care Provider: Melchor Driscoll Home Meds and New Rx's Prescriptions: New naproxen 250 mg tablet 250 - 500 mg PO BID PRNQty: 40 0RF Rx Instructions: take with a meal aspirin 81 mg tablet,delayed release (DR/EC) 81 mg PO BID 30 Days Qty: 60 0RF Discontinued indomethacin 50 mg capsule 50 mg PO TID PRN (Reason: gout) Qty: 60 3RF atorvastatin 10 mg tablet See Rx Instructions .ROUTE .COMPLEX Qty: 90 4RF Dose Instruction: TAKE 1 TABLET BY MOUTH EVERY DAY AT BEDTIME Rx Instructions: TAKE 1 TABLET BY MOUTH EVERY DAY AT BEDTIME Discharge Instructions Additional Instructions: Surgery 07/24/23 Left hip closed reduction internal fixation Activity: Protected weightbearing with a walker or crutches for about 6-8 weeks. Seated/resting gentle hip range of motion okay. Recommend knee range of motion, ankle pumps, and wiggle toes to improve circulation and prevent stiffness. A physical therapy prescription will be provided. Prescriptions: Aspirin 81 mg take 1 twice daily to prevent a blood clot for 30 days, starting this evening Naproxen 250 mg take 1-2 every 12 hours with a meal as needed for moderate pain You may use [id number] Tylenol (acetaminophen) as needed for mild pain. These pain medications may be taken all at once or in different combinations as needed. Also, recommend Colace (docusate) as a stool softener as surgery and pain medicine cause constipation. You may try [id number] diphenhydramine (Benadryl) 25-50 mg nightly as a sleep aid Dressings: Leave dressing in place for 5 days. May then remove and leave open to air or cover incision with Band-Aid. May shower after 7 days. Follow-up: 10-[address] Piedra ([facility] office will call tomorrow/Tuesday to make this appointment) You may take off the leg compression stockings this evening at home. You may also leave them on a few days longer if you have a history of leg swelling or edema. Let us know right away if you develop any redness, drainage, fevers, chest pain, or trouble breathing. Do not drink alcohol or drive for at least 24 hours after anesthesia. Please call the office during business hours with any questions or concerns. Stand Alone Forms: Nursing Discharge Form Referrals: Tai Piedra MD [ [facility] STAFF PHYSICIAN] - (Office will call you on Tuesday to make a follow up appointment.) Activity:: Activity as Tolerated Equipment/Supplies:: Walker Diet:: As Tolerated Discharge Orders Discharge Orders: Discharge Order (Routine); Ordered 07/24/23 Ordered By: Dayron Sifuentes Discharge Data Discharge Date/Time-TO BE ENTERED AT DEPARTURE: 07/24/23 17:27 DS: Summary Time Spent with Patient providing and/or coordinating discharge services: Less than 30 minutes Status at Discharge Functional status at discharge: uses cane/walker Overall status at discharge: patient is progressing back to baseline Mental Status: mental status grossly normal Speech and Movement: speech and movement normal Mood: congruent mood Affect: normal affect Quality:SDOH Health Related Social Needs: No Data to Display Exam Psych Mental Status: mental status grossly normal Speech and Movement: speech and movement normal Mood: congruent mood Affect: normal affect DS: Data Vitals/I&O Vitals and I&O: Vital Signs Temperature 97.7 F 07/24/23 07:08 Temperature Source Tympanic 07/24/23 03:22 Pulse 78 07/24/23 07:08 Pulse Rhythm Regular 07/24/23 07:21 Respiratory Rate 16 07/24/23 07:08 Respiratory Effort Normal 07/24/23 07:21 Respiratory Depth Normal 07/24/23 07:21 Respiratory Pattern Normal 07/23/23 23:20 Blood Pressure 115/70 07/24/23 07:08 Blood Pressure Position Sitting 07/23/23 18:48 Pulse Oximetry 98 07/24/23 07:08 Oxygen Delivery Method Room Air 07/24/23 07:08 Oxygen Flow Rate 0 07/24/23 07:08 Pain Level 4 07/24/23 07:08 Intake & Output 07/23/23 07/23/23 07/24/23 11:59 23:59 11:59 Intake Total 1558.333 / 1558.333 Output Total 805 / 805 Balance 753.333 / 753.333 Weight 175 lb 175 lb Intake: IV 1558.333 / 1558.333 Output: Urine 800 / 800 Estimated Blood Loss 5 / 5 Other: Urine Color Yellow Urine Appearance Clear Clear Urine Odor Normal Voiding Methods Urinal Data Completed and Pending Labs on day of discharge: Labs from last 24 hours 07/24/23 07/23/23 07/23/23 06:46 21:46 20:43 WBC 6.99 11.99 H RBC 5.58 6.21 H Hgb 11.3 L 12.9 L Hct 35.8 L 40.0 MCV 64 L 64 L MCH 20.3 L 20.8 L MCHC 31.6 L 32.3 RDW 16.3 H 17.1 H Plt Count 180 159 MPV Immature Gran % 0.4 Neutrophils % 87.0 Lymphocytes % 6.3 Monocytes % 5.8 Eosinophils % 0.2 Basophils % 0.3 Nucleated RBC % 0.0 Absolute Neutrophils 10.43 H Absolute Lymphocytes 0.76 L Absolute Monocytes 0.70 Absolute Eosinophils 0.02 Absolute Basophils 0.04 RBC Morphology See Below Microcytosis 1+ PT 10.5 INR 1.0 APTT 21.8 L Sodium 141 140 Potassium 3.8 3.7 Chloride 106 103 Carbon Dioxide 28.5 26.6 Anion Gap 6.5 10.4 BUN 14 17 Creatinine 0.8 0.8 Est GFR (CKD-EPI 2020) 102.58 102.58 Glucose 99 97 Calcium 7.9 L 8.8 Magnesium 1.9 Iron 63 L Ferritin 321 Total Bilirubin 0.9 0.8 AST 13 L 17 ALT 16 22 Alkaline Phosphatase 27 L 35 L Total Protein 6.0 L 7.5 Albumin 3.2 L 4.2 Vitamin B12 406 Folate 14.4 Urine Color Yellow Urine Clarity Clear Urine pH 5.5 Ur Specific [place] >= 1.030 H Urine Protein Negative Urine Ketones 40 H Urine Blood Negative Urine Nitrite Negative Urine Bilirubin Negative Urine Urobilinogen 0.2 Ur Leukocyte Esterase Negative Urine Glucose Negative PFSH All Active Problems (Updated 07/25/23 @ 00:08 by KELECHI JONAS) Fracture of femoral neck, left, closed (Acute) Situational stress (Acute) High cholesterol (Chronic) Encounter for annual physical exam (Acute) Epididymal cyst (Acute) Change in bowel habits (Acute) Lesion of nose (Acute) Skin rash (Acute) Alcohol abuse (Acute) Anemia (Chronic 05/02/13) likely thalassemia Gout (Chronic 10/16/09) History of tobacco use (Acute) Medical History Screening cholesterol level Testicular pain Nausea Routine screening for STI (sexually transmitted infection) 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 Gout Surgical History Extraction of cataract 01/2015; [facility]; RIGHT E[facility] Family History Mother , 87 Cancer Social History Smoking/Tobacco Use Status: Former Tobacco Use tobacco type: cigarettes Quit Date: 03/07/12 Tobacco: How many years used: 20 Second Hand Exposure: Yes Smoking risk assessment performed?: Yes Alcohol Intake: former Drug use: Never Substance use type: does not use Housing: house Do you need help understanding health information?: Never 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 Pets and animals: Yes Pets and animals: dog(s) Sexually active: No Do you think of yourself as: straight/heterosexual Current gender identity: male What is your relationship status?: How often do you talk on the phone with friends or family?: once per week How often do you get together with friends or relatives?: once per week How often do you attend rastafari or yazidi services?: decline to answer Do you belong to any clubs or organized social groups?: no Panel score (0-1 are the most socially isolated patients): 0 What type of physical activity do you participate in: walking Frequency: daily Nikki/Cheondoism: No preference Special nikki needs: No Seatbelt use: always Helmet use: Yes Helmet use: always Drive intox or ride w/intox passenger coach driver: No Do you feel safe at home: Yes Do you feel safe in your relationship?: Yes Time Spent with Patient Time Spent with Patient: <45 minutes Time was spent: preparing to see the patient(eg.review tests), obtaining and/or reviewing separately otained hiistory, ordering medications,tests, procedures and referring, communicating with other health critical care technician
--- NOTE | 2023-07-24 10:15 | W.ANESPOSTOP ---
Postoperative Evaluation Date, Time and Location Date Performed: 07/24/23 Time Performed: 10:15 Patient Location: PACU Vital Signs Most Recent Imported Vital Signs: Most Recent Vital Signs Temp Pulse Resp BP Pulse Ox 36.6 C 78 14 116/71 98 07/24/23 09:58 07/24/23 09:58 07/24/23 09:58 07/24/23 09:58 07/24/23 09:58 Pain Score Most Recent Pain Score: Most Recent Pain Score Pain Level 4 07/24/23 09:58 Assessment Mental Status: Awake (Alert & Oriented to Patient Baseline) Airway and Respiratory Function: Patent airway with normal (patient baseline) respiratory exam Cardiovascular Function: Hemodynamically Stable Hydration Status: Adequately Hydrated Nausea & Vomiting: No Nausea or Vomiting Pain: Pain is tolerable per patient Peripheral Nerve Block: Patient did not receive a nerve block
--- NOTE | 2023-07-24 10:26 | NUR.NOTE ---
Pt back from OR approx 10 am, pain well controlled. VSS Nursing Note:
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
--- NOTE | 2023-07-24 12:37 | NUR.NOTE ---
Pt tolerated water, crackers, then a regular diet for lunch. Nursing Note:
[2023-07-24] MEDS: ceFAZolin 1 GM/50 ML BAG IVPB (12:47)
[2023-07-24] MEDS: oxyCODONE 5 MG TAB PO (14:55)
[2023-07-24] MEDS: Acetaminophen 500 MG TAB 1000 MG PO (14:56)
--- NOTE | 2023-07-24 16:18 | PDOC.CMDIS ---
Date of service: 07/24/23 Time of Service: 16:18 LACE Index Scoring Tool Questions: Length of Stay (in days): 1 Was the patient admitted via the E.D.?: Yes E.D. Visits: 1 Answers: Total Score: 5 Risk of Readmission: Low Risk Care Management Discharge Plan Reason for Hospitalization: fractured hip Discharge Plan: Johnny will be discharged home with with a new walker. He will follow up with his orthopedic surgeon and plan of care and his son Iam will drive him home. Johnny has been instructed to call his surgeon's office in the morning to make a follow up appointment and to clarify PT orders: home health vs outpatient. Patient/Family Education Needs: Review of discharge instructions, activity, limitations, follow up plan, discuss Ask Me Three Services Needed at Discharge: Physical Therapy SDOH Health Related Social Needs: No Data to Display
== END 2023-07-24 17:27 | disposition home or self-care (01) | DRG 482 ==
LOC: ER 21:51 → MS 22:25
PROVIDERS: Student in an Organized Health Care Education/Training Program; Admitting Provider Family Medicine; Emergency Provider Emergency Medicine; PCP Nurse Practitioner Family; Visit Provider Family Medicine
PROC: 0QS734Z Reposition Left Upper Femur with Internal Fixation Device, Percutaneous Approach (ICD-10-PCS; CPT 27235; principal; 2023-07-24 08:00)
DX: S72.002A Fracture of unspecified part of neck of left femur, initial encounter for closed fracture (principal); E78.00 Pure hypercholesterolemia, unspecified; V18.3XXA Person boarding or alighting a pedal cycle injured in noncollision transport accident, initial encounter; D56.9 Thalassemia, unspecified; Z87.891 Personal history of nicotine dependence; D50.9 Iron deficiency anemia, unspecified; F43.9 Reaction to severe stress, unspecified
CPT/HCPCS: 27235; 00123; 36415; 80053; 85027; 93005; 96374; 97161; 97530; 97535; 99285; 71045; 73501; 73502; 81003; 82607; 82728; 82746; 83540; 83735; 85025; 85610; 85730; 93010; 99222; J0131; J0690; J1100; J1885; J2250; J2270; J2371; J2405; J2704; J3010

== ENCOUNTER 2023-08-03 15:59 | Outpatient (CLI) | payer MEDICAID, SELFPAY ==
--- NOTE | 2023-08-03 10:45 | DI.RAD_ITS ---
Exam(s) XR HIP LT AP LAT ONLY EXAM: XR HIP LT AP LAT ONLY CLINICAL HISTORY: F/U FRACTURE. TECHNIQUE: 2D digital imaging was performed. Two images were obtained. AP and lateral views were ob tained. COMPARISON: CR,XR XR HIP LT COMPLETE AP PELVIS from 07/23/2023 XA XR HIP LT IN OR from 07/24/2023 FINDINGS: BONES: There are stable post operative changes present. There are 3 partially threaded screws transf ixing the left femoral neck fracture. No change in alignment of the orthopedic hardware fracture com ponents is seen. No new fractures identified. No new fracture or dislocation. JOINTS: The joint spaces are well maintained. SOFT TISSUE: Normal. IMPRESSION: Stable postoperative changes. DATA REPOSITORY: RADIATION DOSE DELIVERED:
== END 2023-08-03 16:00 | disposition home or self-care (01) ==
LOC: DIORS 15:59
PROVIDERS: PCP Nurse Practitioner Family; Visit Provider Student in an Organized Health Care Education/Training Program
DX: S72.042D Displaced fracture of base of neck of left femur, subsequent encounter for closed fracture with routine healing (principal); X58.XXXD Exposure to other specified factors, subsequent encounter
CPT/HCPCS: 73502

== ENCOUNTER 2023-08-12 05:22 | Outpatient (CLI) | payer MEDICAID, SELFPAY ==
[2023-08-12 12:57] LABS: ALT 15 U/L (16-63); AST 13 U/L (15-37); Albumin 3.8 g/dL (3.4-5.0); Alkaline Phosphatase 57 U/L (46-116); BUN 15 mg/dL (7-18); Bilirubin, Total 0.8 mg/dL (0.2-1.0); CREATININE 0.9 mg/dL (0.70-1.30); Calcium 9.3 mg/dL (8.5-10.1); Calculated LDL 143 mg/dL (<100); Chloride 104 mmol/L (98-107); Cholesterol 209 mg/dL (<200); Glucose 98 mg/dL (74-106); HDL Cholesterol 54 mg/dL (40-60); Sodium 140 mmol/L (136-145); Total Protein 7.6 g/dL (6.4-8.2); Triglyceride 63 mg/dL (<150)
== END 2023-08-12 05:23 | disposition home or self-care (01) ==
LOC: LOS 05:22
PROVIDERS: PCP Nurse Practitioner Family; Visit Provider Nurse Practitioner Family
DX: E78.00 Pure hypercholesterolemia, unspecified (principal)
CPT/HCPCS: 36415; 80053; 80061

== ENCOUNTER 2023-08-31 11:12 | Outpatient (CLI) | payer MEDICAID, SELFPAY ==
--- NOTE | 2023-08-31 11:06 | DI.RAD_ITS ---
Exam(s) XR HIP LT AP LAT ONLY EXAM: XR HIP LT AP LAT ONLY INDICATION: F/U HIP FX. COMPARISON: CR XR HIP LT AP LAT ONLY from 08/03/2023 TECHNIQUE: 2D digital imaging was performed. Two views. FINDINGS: Stable fracture and hardware alignment. No new abnormalities. DATA REPOSITORY: RADIATION DOSE DELIVERED:
== END 2023-08-31 11:13 | disposition home or self-care (01) ==
LOC: DIORS 11:12
PROVIDERS: PCP Nurse Practitioner Family; Referring Provider Nurse Practitioner Family; Visit Provider Student in an Organized Health Care Education/Training Program
DX: S72.002A Fracture of unspecified part of neck of left femur, initial encounter for closed fracture (principal)
CPT/HCPCS: 73502

== ENCOUNTER 2023-10-12 11:32 | Outpatient (CLI) | payer MEDICAID, SELFPAY ==
--- NOTE | 2023-10-12 10:45 | DI.RAD_ITS ---
Exam(s) XR HIP LT AP LAT ONLY EXAM: XR HIP LT AP LAT ONLY CLINICAL HISTORY: F/U FRACTURE. TECHNIQUE: 2D digital imaging was performed. COMPARISON: CR XR HIP LT AP LAT ONLY from 08/31/2023 FINDINGS: Two views There are 3 screws again noted across healed femoral neck fracture site. Screws remain stable in pos ition. No evidence of hardware loosening nor osteomyelitis and no evidence of hip joint space narrow ing. IMPRESSION: Stable appearance DATA REPOSITORY: RADIATION DOSE DELIVERED:
--- NOTE | 2023-10-12 11:34 | DI.RAD_ITS ---
Exam(s) XR ANKLE RT COMPLETE EXAM: XR ANKLE RT COMPLETE CLINICAL HISTORY: right ankle pain. TECHNIQUE: 2D digital imaging was performed. COMPARISON: CR RIGHT ANKLE COMPLETE from 03/24/2017 FINDINGS: 3 views Healed fracture site in the lateral malleolus noted (03/24/2017). There is no evidence of acute frac ture nor widening of the ankle mortise. Mild degenerative changes are noted in the anterior aspect o f the ankle-tibiotalar joint. Accessory ossicle is again noted subjacent to the medial malleolus. T here is a small degenerative subarticular cyst in the medial aspect of the talar dome. There is no o steochondral defect evident. Benign lucency in the anterior half of the calcaneus is unchanged from 2018. IMPRESSION: Healed lateral malleolus fracture. Some degenerative change noted in the tibiotalar joint as describ ed above. DATA REPOSITORY: RADIATION DOSE DELIVERED:
== END 2023-10-12 11:33 | disposition home or self-care (01) ==
LOC: DIORS 11:35
PROVIDERS: PCP Nurse Practitioner Family; Referring Provider Family Medicine; Visit Provider Student in an Organized Health Care Education/Training Program
DX: S72.002A Fracture of unspecified part of neck of left femur, initial encounter for closed fracture (principal); M25.571 Pain in right ankle and joints of right foot; M19.071 Primary osteoarthritis, right ankle and foot
CPT/HCPCS: 73502; 73610

== ENCOUNTER 2024-04-18 15:47 | Outpatient (CLI) | payer MEDICAID, SELFPAY ==
--- NOTE | 2024-04-18 10:45 | DI.RAD_ITS ---
Exam(s) XR HIP LT AP LAT ONLY EXAM: XR HIP LT AP LAT ONLY CLINICAL HISTORY: F/U FRACTURE. TECHNIQUE: 2D digital imaging was performed. Two views. COMPARISON: CR XR HIP LT AP LAT ONLY from 10/12/2023 FINDINGS: BONES: 3 screws are again noted in the proximal femur. There are no abnormal surrounding lucencies. No acute fracture is present. No bony destructive lesion is seen. JOINTS: No dislocation present. The SI joints and pubic symphysis are intact. The hip joint space is maintained. Mild acetabular spurring. SOFT TISSUE: Normal. IMPRESSION: Stable appearance of screws in the proximal femur. DATA REPOSITORY: RADIATION DOSE DELIVERED:
== END 2024-04-18 15:48 | disposition home or self-care (01) ==
LOC: DIORS 15:47
PROVIDERS: PCP Nurse Practitioner Family; Visit Provider Student in an Organized Health Care Education/Training Program
DX: S72.042D Displaced fracture of base of neck of left femur, subsequent encounter for closed fracture with routine healing (principal); X58.XXXD Exposure to other specified factors, subsequent encounter
CPT/HCPCS: 73502

== ENCOUNTER 2024-07-23 11:44 | Outpatient (CLI) | payer MEDICAID, SELFPAY ==
--- NOTE | 2024-07-23 11:45 | DI.RAD_ITS ---
Exam(s) XR HIP LT COMPLETE AP PELVIS EXAM: XR HIP LT COMPLETE AP PELVIS CLINICAL HISTORY: worsening pain,fx femoral neck lt, [id number]. TECHNIQUE: 2D digital imaging was performed. Two views. COMPARISON: No exams were available for comparison FINDINGS: BONES: There are 3 partially threaded screw screws in the proximal left femur. No significant residu al fracture deformity. No acute fracture is present. No bony destructive lesion is seen. JOINTS: No dislocation present. The SI joints and pubic symphysis are intact. There are minimal degen erative changes of the hips. SOFT TISSUE: Normal. IMPRESSION: No acute abnormality DATA REPOSITORY: RADIATION DOSE DELIVERED:
== END 2024-07-23 12:04 ==
LOC: DI 11:45
PROVIDERS: PCP Nurse Practitioner Family; Visit Provider Nurse Practitioner Family
DX: S72.042D Displaced fracture of base of neck of left femur, subsequent encounter for closed fracture with routine healing (principal); X58.XXXD Exposure to other specified factors, subsequent encounter
CPT/HCPCS: 80048; 85652; 73502; 84550; 85025; 86140

== ENCOUNTER 2024-07-23 18:25 | Outpatient (REF) | payer MEDICAID, SELFPAY ==
[2024-07-23 18:17] LABS: Anion Gap 10.5 mmol/L (3-11); BUN 19 mg/dL (7-18); CO2 25.5 mmol/L (21.0-32.0); CREATININE 0.9 mg/dL (0.70-1.30); Chloride 104 mmol/L (98-107); Estimated GFR 98.38 (mL/min/1.73m2); Glucose 103 mg/dL (74-106); Potassium 3.6 mmol/L (3.5-5.1); Sodium 140 mmol/L (136-145); Uric Acid 4.7 mg/dL (3.5-7.2)
[2024-07-23 18:20] LABS: Abs Immature Grans 0.01 10^3/uL (0.0-0.06); Absolute Basophil Count 0.02 10^3/uL (0.0-0.2); Absolute Eosinophil Count 0.03 10^3/uL (0.0-0.7); Absolute Lymphocyte Count 0.86 10^3/uL (1.2-3.4); Absolute Monocyte Count 0.93 10^3/uL (0.1-0.8); Absolute Neutrophil Count 5.62 10^3/uL (1.2-6.7); Basophils % 0.3 %; Eosinophils % 0.4 %; HCT 36.6 % (40.0-50.0); HGB 11.9 g/dL (13.5-17.5); Immature Grans % 0.1 %; Lymphocytes % 11.5 %; MCH 20.6 pg (27.0-33.0); MCHC 32.5 % (32.0-36.0); MCV 63 fL (80-95); Monocytes % 12.4 %; Neutrophils % 75.3 %; RBC 5.77 10^6/uL (4.36-5.78); RDW 16.4 % (11.8-14.1); RDW-SD 34.8 fL; WBC 7.47 10^3/uL (4.4-10.8)
[2024-07-23 18:24] LABS: ESR 7 mm/hr (0-20)
[2024-07-23 18:46] LABS: Diff Comment RBC Morph Reviewed; Microcytosis 2+; Platelet Count 217 10^3/uL (130-400)
[2024-07-23 18:47] LABS: Poikilocytes 1+
[2024-07-24 13:33] LABS: Lab Add On Test DONE
[2024-07-24 13:44] LABS: Iron 21 ug/dL (65-175)
== END 2024-07-23 18:26 | disposition home or self-care (01) ==
LOC: LBN 18:25
PROVIDERS: PCP Nurse Practitioner Family; Visit Provider Nurse Practitioner Family
DX: R21 Rash and other nonspecific skin eruption (principal); M10.9 Gout, unspecified; S72.002A Fracture of unspecified part of neck of left femur, initial encounter for closed fracture
CPT/HCPCS: 80048; 85652; 83540; 84550; 85025; 86140